=== PATIENT | female | born 1985 | race African-American/Black ===

== ENCOUNTER 2019-04-14 02:43 | Emergency (ER) | payer OTHER ==
--- NOTE | 2019-04-14 03:43 | PDOC ---
Attending Attestation - Resident Resident Name: Sejal Marquez - ED Attending Attestation I have performed the following: I have examined & evaluated the patient, The case was reviewed & discussed with the resident, I agree w/resident's findings & plan - HPI HPI: 04/14/19 05:38 33-year-old female with left back pain that radiates to the arm and chest, patient states the pain began after wiping down a counter. She's had similar episodes multiple times in the past and states laying on her left side helps the pain. She states the pain is usually initiated by some type of physical activity. She's had no associated fever nausea vomiting urinary symptoms or trauma. - Physicial Exam PE: 04/14/19 05:39 GENERAL: Awake, in no acute distress HEAD: No signs of trauma EYES: ENT:clear without exudates. Moist mucosa NECK: Normal ROM, LUNGS:. Normal work of breathing. HEART: Regular rate and rhythm, ABDOMEN: Soft, nondistended CHEST WALL: BACK: tenderness lrft PVM reproducing chief complain EXTREMITIES:. No erythema, or tenderness NEUROLOGICAL: Alert, SKIN: Warm, Dry - Medical Decision Making 04/14/19 05:39 33-year-old female with left back pain, reproducible Chest x-ray shows no acute abnormalities EKG shows a normal sinus rhythm at 76 bpm with no acute ST elevations Patient improved after Toradol IM Will DC home with primary care follow-up
--- NOTE | 2019-04-14 03:54 | PDOC ---
History of Present Illness - General Chief Complaint: Back Pain Stated Complaint: BACK PAIN Time Seen by Provider: 04/14/19 03:32 - History of Present Illness Initial Comments: 04/14/19 04:23 33y/o F with no significant pmhx presents to ED with 3 days of left upper back pain and left sided chest pain. The pain is a constant throbbing pain, radiating from upper back to left chest. she denies any, fall, trauma or recent heavy lifting or increased physical activity. The pain is exacerbated by deep breathing and movement and relieved with rest. she was seen a few hours ago at [facility] where whe was offered tylenol PO which she declined and decided to come to this ED. She denies fevers, chills, nausea, vomiting, cough, hemoptysis, recent surgeries, or hx of blood clots. LMP 03/31. Not on control (PERC negative) Past History - Past Medical History Allergies/Adverse Reactions: Allergies Allergy/AdvReac Type Severity Reaction Status Date / Time No Known Allergies Allergy Verified 04/14/19 03:25 Home Medications: Ambulatory Orders NK [No Known Home Medication] 04/14/19 COPD: No - Suicide/Smoking/Psychosocial Hx Smoking History: Current every day smoker Have you smoked in the past 12 months: Yes Number of Cigarettes Smoked Daily: 20 Information on smoking cessation initiated: No Hx Alcohol Use: No Drug/Substance Use Hx: No Review of Systems - Review of Systems Constitutional: No: Chills, Fever, Unexplained wgt Loss HEENTM: No: Eye Pain, Blurred Vision Respiratory: No: Cough, Hemoptysis Cardiac (ROS): Yes: Symptoms Reported ABD/GI: No: Diarrhea, Abdominal cramping : No: Burning, Dysuria Musculoskeletal: No: Back Pain, Muscle Pain Integumentary: No: Dryness, Rash Neurological: No: Headache, Dizziness Endocrine: No: Increased Urine, Unexplained Weight Loss Hematologic/Lymphatic: No: Anemia, Easy Bruising *Physical Exam - Vital Signs Last Vital Signs Temp Pulse Resp BP Pulse Ox 97.7 F 90 20 156/102 H 99 04/14/19 03:26 04/14/19 03:26 04/14/19 03:26 04/14/19 03:26 04/14/19 03:26 - Physical Exam General Appearance: Yes: Nourished, Appropriately Dressed, Obese HEENT: positive: Normal Voice. negative: Scleral Icterus (R), Scleral Icterus ( L) Neck: positive: Trachea midline, Supple Respiratory/Chest: positive: Chest Tender, Lungs Clear, Normal Breath Sounds, Other (Tenderness to palpation of the left shoulder, left axilla, left upper back and chest). negative: Respiratory Distress, Accessory Muscle Use, Labored Respiration, Wheezing Cardiovascular: positive: Regular Rhythm, Regular Rate, S1, S2. negative: Edema , JVD Vascular Pulses: Dorsalis-Pedis (R): 2+, Doralis-Pedis (L): 2+ Gastrointestinal/Abdominal: positive: Normal Bowel Sounds, Soft, Protuberent. negative: Tenderness Musculoskeletal: positive: Normal Inspection. negative: CVA Tenderness Extremity: positive: Normal Capillary Refill, Normal Inspection, Normal Range of Motion Integumentary: positive: Normal Color, Dry, Warm Neurologic: positive: Fully Oriented, Alert, Normal Mood/Affect, Normal Response Medical Decision Making - Medical Decision Making 04/14/19 04:52 33y/o F with no significant pmhx presents to ED with 3 days of left upper back pain and left sided chest pain. MSK strain vs PE -Pt PERC's out Labs/Imaging/Meds: EKG, CXR -Lidocaine patch, ketoralac, cyclobenzaprine. -04/14/19 04:55 -EKG: normal sinus rhythm , normal ekg -CXR: No infiltrates, No fractures 04/14/19 05:32 Pt. is more comfortable and sleeping on my arrival. will discharge with PCP follow up and at home care instructions. *DC/Admit/Observation/Transfer Diagnosis at time of Disposition: Musculoskeletal pain - Discharge Dispostion Disposition: HOME Condition at time of disposition: Stable Decision to Admit order: No - Referrals - Patient Instructions Printed Discharge Instructions: DI for Musculoskeletal Pain Additional Instructions: You were seen in the ED for musculoskeletal pain in your upper back and check. Your EKG and CXR were normal. Follow up with your primary doctor within the next 3 days. Avoid heavy lifting and straining on the affected side. You can take tylenol or motrin for pain. Use as directed on the labels. You can use an over the counter lidocaine patch as well. Follow instructions for use and do not exceed the recommended doses. Return to the ED if your pain worsens, or you develop fevers or chills. - Post Discharge Activity
[2019-04-14] MEDS ORDERED: LIDOCAINE 5% TOPICAL PATCH TP ONE (04:06)
[2019-04-14] MEDS ORDERED: KETOROLAC TROMETHAMINE 60 MG/2 ML VIAL IM ONE (04:06)
[2019-04-14] MEDS ORDERED: CYCLOBENZAPRINE HCL 10 MG TABLET (FP) PO ONE (04:06)
[2019-04-14] MEDS ORDERED: CYCLOBENZAPRINE HCL 10 MG TABLET (FP) ONE (04:29)
[2019-04-14] MEDS ORDERED: KETOROLAC TROMETHAMINE 60 MG/2 ML VIAL ONE (04:29)
[2019-04-14] MEDS ORDERED: LIDOCAINE 5% TOPICAL PATCH ONE (04:29)
[2019-04-14 04:37] VITALS: PULSE 90; TEMP 97.7; BMI 50.1
[2019-04-14 08:02] VITALS: BP 103/67
--- NOTE | 2019-04-14 15:42 | EKG ---
Test Reason : Blood Pressure : / mmHG Vent. Rate : 076 BPM Atrial Rate : 076 BPM P-R Int : 170 ms QRS Dur : 072 ms QT Int : 388 ms P-R-T Axes : 022 017 029 degrees QTc Int : 436 ms NORMAL SINUS RHYTHM NORMAL ECG NO PREVIOUS ECGS AVAILABLE Confirmed by MD POWER, ELLEN ([id number]) on 04/14/2019 3:42:34 PM Referred By: Confirmed By:ELLEN STEVE MD
[2019-04-14] MEDS ORDERED: LIDOCAINE PATCH REMOVAL MC SCH (22:00)
== END 2019-04-14 06:57 | disposition home or self-care (01) ==
LOC: JER 02:43
PROC: 3E0233Z Introduction of Anti-inflammatory into Muscle, Percutaneous Approach (ICD-10-PCS; principal; 2019-04-14)
DX: M54.6 Pain in thoracic spine (principal); R07.9 Chest pain, unspecified
CPT/HCPCS: 71046-TC-FY; 93005; 93010; 96372; 99282-25

== ENCOUNTER 2020-04-13 22:18 | Emergency (ER) | payer OTHER ==
[2020-04-13 22:27] VITALS: BP 121/80; PULSE 99; TEMP 98.7; BMI 48.4
--- NOTE | 2020-04-13 22:34 | PDOC ---
History of Present Illness - General Chief Complaint: Pain Stated Complaint: FOOT INJURY Time Seen by Provider: 04/13/20 22:30 - History of Present Illness Initial Comments: 04/13/20 22:32 34-year-old female without comorbidities presents for evaluation of left foot pain. Patient states she was using a pumice stone to remove a callus on the lateral aspect of her left foot 2 days ago yesterday she noticed that the foot became swollen and painful today she has redness at the top of her left foot Past History - Medical History Allergies/Adverse Reactions: Allergies Allergy/AdvReac Type Severity Reaction Status Date / Time No Known Allergies Allergy Verified 11/27/19 17:23 Home Medications: Ambulatory Orders Medroxyprogesterone Acetate 10 mg PO DAILY #10 tablet 11/27/19 Cephalexin [Keflex] 500 mg PO QID #40 capsule 04/13/20 Sulfamethoxazole/Trimethoprim [Bactrim Ds -] 1 tab PO BID #14 tablet 04/13/20 COPD: No - Reproductive History Is Patient Now?: No - Immunization History Immunization Up to Date: Yes - Psycho-Social/Smoking History Smoking History: Current every day smoker Have you smoked in the past 12 months: Yes Number of Cigarettes Smoked Daily: 20 Information on smoking cessation initiated: No - Substance Abuse Hx (Audit-C & DAST Scrn) How often the patient has a drink containing alcohol: Never Score: In Men: 4 or > Positive; In Women: 3 or > Positive: 0 Screen Result (Pos requires Nsg. Audit-10AR): Negative In the last yr the pt used illegal drug/Rx for NonMed reason: No Score: Yes response is considered Positive: 0 Screen Result (Positive result requires Nsg. DAST-10): Negative Review of Systems - Review of Systems Constitutional: No: Fever *Physical Exam - Vital Signs Last Vital Signs Temp Pulse Resp BP Pulse Ox 98.7 F 99 H 19 121/80 98 04/13/20 22:21 04/13/20 22:21 04/13/20 22:21 04/13/20 22:21 04/13/20 22:21 - Physical Exam 04/13/20 22:33 There is mild erythema on the skin overlying the left fifth MTPJ. No pain with passive motion. No induration mild warmth no focal fluctuance neurovascular intact Medical Decision Making - Medical Decision Making 04/13/20 22:33 Keflex and Bactrim for left foot cellulitis follow-up with primary care physician patient's tetanus is current Discharge - Discharge Information Problems reviewed: Yes Clinical Impression/Diagnosis: Cellulitis of left foot Condition: Stable Disposition: HOME - Admission No - Additional Discharge Information Prescriptions: Sulfamethoxazole/Trimethoprim [Bactrim Ds -] 1 tab PO BID #14 tablet Cephalexin [Keflex] 500 mg PO QID #40 capsule - Follow up/Referral Referrals: Leanna Villarreal MD [Staff Physician] - - Patient Discharge Instructions Additional Instructions: Please take the antibiotics as directed Tylenol and Motrin as directed for pain. You must finish all the antibiotics. The outline of the redness on your left foot was marked today if the redness should extend past the outline and move up towards the top of your foot and up your leg please return to the emergency room immediately any redness past the outlined area you should return to the emergency room. Without fail follow-up with your primary care physician which we recommended in 1 to 2 days for further evaluation and treatment options and again return to the emergency room should symptoms worsen. - Post Discharge Activity
== END 2020-04-13 22:59 | disposition home or self-care (01) ==
LOC: JERFT 22:18
DX: L03.116 Cellulitis of left lower limb (principal)
CPT/HCPCS: 99283-25

== ENCOUNTER 2020-12-23 14:44 | Emergency (ER) | payer OTHER ==
[2020-12-23 15:01] VITALS: BP 127/84; PULSE 92; BMI 55.7
[2020-12-23] MEDS ORDERED: KETOROLAC TROMETHAMINE 60 MG/2 ML VIAL IM ONE (16:23)
[2020-12-23] MEDS ORDERED: KETOROLAC TROMETHAMINE 30 MG/1 ML VIAL ONE (16:41)
== END 2020-12-23 17:30 | disposition home or self-care (01) ==
LOC: JERFT 14:44
PROC: 3E0233Z Introduction of Anti-inflammatory into Muscle, Percutaneous Approach (ICD-10-PCS; principal; 2020-12-23)
DX: M25.522 Pain in left elbow (principal)
CPT/HCPCS: 36415; 73070-TC-LT-FY; 84703; 86618; 96372; 99284-25